=== PATIENT | male | born 1975 | race Hispanic/Latino ===

== ENCOUNTER 2016-11-18 18:28 | Emergency (ER) | payer OTHER ==
[2016-11-18 18:38] VITALS: BP 121/77; PULSE 60; RESP 18; TEMP 98; O2SAT 99
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
== END 2016-11-18 20:06 | disposition home or self-care (01) ==
LOC: H.ER 18:28
DX: S09.90XA Unspecified injury of head, initial encounter (principal); M54.5 Low back pain; M54.6 Pain in thoracic spine; V43.52XA Car driver injured in collision with other type car in traffic accident, initial encounter; Y92.410 Unspecified street and highway as the place of occurrence of the external cause; Z86.718 Personal history of other venous thrombosis and embolism